=== PATIENT | male | born 1980 | race Caucasian/White ===

== ENCOUNTER 2022-02-06 20:47 | Emergency (ER) | payer SELFPAY ==
[~2022-02-06] VITALS: Ht 165.1 cm; Wt 92.2 kg
[2022-02-06] MEDS ORDERED: IBUPROFEN 600MG TABLET PO ONE (22:15)
[2022-02-06] MEDS ORDERED: IBUP-2029 MT (23:10)
[2022-02-06 23:15] VITALS: BP 135/85
== END 2022-02-06 23:20 | disposition home or self-care (01) ==
LOC: ER 20:47
DX: S83.8X1A Sprain of other specified parts of right knee, initial encounter (principal); E78.00 Pure hypercholesterolemia, unspecified; F17.210 Nicotine dependence, cigarettes, uncomplicated; X58.XXXA Exposure to other specified factors, initial encounter; Y93.66 Activity, soccer; Y92.89 Other specified places as the place of occurrence of the external cause; Y99.8 Other external cause status
CPT/HCPCS: 73560; 99283